=== PATIENT | male | born 1970 | race Caucasian/White ===

== ENCOUNTER 2017-06-14 09:17 | Emergency (ER) | payer OTHER ==
[2017-06-14] MEDS ORDERED: NACL 0.9% 1000 ML 1,000 ML IV ONE (09:27)
[2017-06-14 10:14] LABS: Basophils % (Auto) 0.6 % (0.0-1.8); Eosinophils % (Auto) 1.4 % (0.0-4.3); Hematocrit 44.6 % (35.5-45.6); Hemoglobin 14.8 gm/dl (11.8-15.2); Mean Corpuscular HGB Conc 33 % (32-34); Mean Corpuscular Hemoglobin 29 pg (28-32); Mean Corpuscular Volume 88 fl (84-94); Platelet Count 128 K/mm3 (140-440); Red Blood Count 5.08 M/mm3 (3.65-5.03); White Blood Count 8.9 K/mm3 (4.5-11.0)
[2017-06-14 10:21] LABS: Alanine Aminotransferase 21 units/L (7-56); Albumin 4.4 g/dL (3.9-5); Albumin/Globulin Ratio 1.6 %; Alkaline Phosphatase 94 units/L (35-129); Anion Gap 17 mmol/L; BUN/Creatinine Ratio 23; Blood Urea Nitrogen 18 mg/dL (9-20); Calcium 9.5 mg/dL (8.4-10.2); Carbon Dioxide 28 mmol/L (22-30); Chloride 100.3 mmol/L (98-107); Glucose 101 mg/dL (75-100); Lipase 63 units/L (13-60); Potassium 4.4 mmol/L (3.6-5.0); Sodium 141 mmol/L (137-145); Total Protein 7.2 g/dL (6.3-8.2)
[2017-06-14 10:23] LABS: INR 0.83 (0.87-1.13)
[2017-06-14 10:24] LABS: Partial Thromboplastin Time 31.6 Sec. (24.2-36.6)
--- NOTE | 2017-06-14 19:07 | Emergency Department Report ---
ED GI Bleed HPI - General Chief complaint: GI Bleed Stated complaint: BLOOD IN STOOL Time Seen by Provider: 06/14/17 17:50 Source: patient Mode of arrival: Ambulatory Limitations: No Limitations - History of Present Illness Initial comments: Patient reports once each day his had blood in the toilet. No abdominal pain and no prior history. He does drink minimal water and a lot of caffeine. His urine is usually yellow. No rectal pain either. BMs daily and reports normal. MD complaint: blood on toilet paper -: Sudden Radiation: none Severity scale (0 -10): 0 Quality: painless Consistency: intermittent Improves with: none Worsens with: bowel movement Context: medication/supplement use, other (Recent treatment for hepatitis B by GI.) Associated Symptoms: denies other symptoms - Related Data Home Medications Medication Instructions Recorded Confirmed Last Taken Entecavir [Entecavir] 0.5 mg PO QDAY 06/14/17 06/14/17 Unknown Previous Rx's Medication Instructions Recorded Last Taken Type Hydrocort/Pramoxine [Proctofoam-Hc] 10 gm OH 2XWHS #1 can 06/14/17 Unknown Rx Allergies Allergy/AdvReac Type Severity Reaction Status Date / Time No Known Allergies Allergy Unverified 06/14/17 09:24 ED Review of Systems ROS: Stated complaint: BLOOD IN STOOL Other details as noted in HPI Constitutional: denies: chills, fever Eyes: denies: eye pain, eye discharge, vision change ENT: denies: ear pain, throat pain Respiratory: denies: cough, shortness of breath, wheezing Cardiovascular: denies: chest pain, palpitations Endocrine: no symptoms reported Gastrointestinal: denies: abdominal pain, nausea, diarrhea Genitourinary: denies: urgency, dysuria Musculoskeletal: denies: back pain, joint swelling, arthralgia Skin: denies: rash, lesions Neurological: denies: headache, weakness, paresthesias Psychiatric: denies: anxiety, depression Hematological/Lymphatic: denies: easy bleeding, easy bruising ED Past Medical Hx - Past Medical History Previous Medical History?: No Hx Hypertension: No Hx CVA: No Hx Heart Attack/AMI: No Hx Congestive Heart Failure: No Hx Diabetes: No Hx Deep Vein Thrombosis: No Hx Pulmonary Embolism: No Hx Liver Disease: Yes (Hepatitis B) - Surgical History Past Surgical History?: No - Social History Smoking Status: Current Every Day Smoker Substance Use Type: Alcohol - Medications Home Medications: Home Medications Medication Instructions Recorded Confirmed Last Taken Type Entecavir [Entecavir] 0.5 mg PO QDAY 06/14/17 06/14/17 Unknown History Hydrocort/Pramoxine [Proctofoam-Hc] 10 gm [place] 2XWHS #1 can 06/14/17 Unknown Rx ED Physical Exam - General Limitations: No Limitations General appearance: alert, in no apparent distress - Head Head exam: Present: atraumatic, normocephalic - Eye Eye exam: Present: normal appearance - ENT ENT exam: Present: mucous membranes moist - Neck Neck exam: Present: normal inspection - Respiratory Respiratory exam: Present: normal lung sounds bilaterally. Absent: respiratory distress - Cardiovascular Cardiovascular Exam: Present: regular rate, normal rhythm. Absent: systolic murmur, diastolic murmur, rubs, gallop - GI/Abdominal GI/Abdominal exam: Present: soft, normal bowel sounds - Rectal Rectal exam: Present: normal inspection, normal rectal tone, heme (-) stool, hemorrhoids (Interal left anterior hemorrhoid palpated.), normal prostate - Extremities Exam Extremities exam: Present: normal inspection - Back Exam Back exam: Present: normal inspection - Neurological Exam Neurological exam: Present: alert, oriented X3 - Psychiatric Psychiatric exam: Present: normal affect, normal mood - Skin Skin exam: Present: warm, dry, intact, normal color. Absent: rash ED Course Vital Signs 06/14/17 06/14/17 06/14/17 09:24 16:41 16:42 Temperature 97.7 F Pulse Rate 72 72 Respiratory 18 16 16 Rate Blood Pressure 115/79 Blood Pressure 118/80 [Left] O2 Sat by Pulse 99 99 99 Oximetry ED Medical Decision Making - Lab Data Result diagrams: 06/14/17 09:39 06/14/17 09:39 - EKG Data EKG shows normal: sinus rhythm Rate: normal - EKG Data Interpretation: normal EKG - Medical Decision Making patient with unremarkable labs. Will treat as hemorrhoids. Will need to follow up with GI. Will do proctofoam. Encouraged hydration with water and minimal caffeine. Critical care attestation.: If time is entered above; I have spent that time in minutes in the direct care of this critically ill patient, excluding procedure time. ED Disposition Clinical Impression: Hemorrhoid Qualifiers: Hemorrhoid type: first degree Qualified Code(s): K64.0 - First degree hemorrhoids Disposition: TO HOME OR SELFCARE Is pt being admited?: No Does the pt Need Aspirin: No Condition: Good Instructions: Rectal Bleeding (ED) Prescriptions: Hydrocort/Pramoxine [Proctofoam-Hc] 10 gm [place] 2XWHS #1 can Referrals: PRIMARY CARE,MD [Primary Care Provider] - 7-10 days (Follow up with your new MD at [facility] residency program.) Time of Disposition: 19:10
[2017-06-14 19:43] VITALS: BP 113/69
== END 2017-06-14 19:57 | disposition home or self-care (01) ==
LOC: ED 09:17
DX: K64.0 First degree hemorrhoids (principal); F17.200 Nicotine dependence, unspecified, uncomplicated
CPT/HCPCS: 36415; 80053; 83690; 85025; 85610; 85730; 86850; 86900; 86901; 93005; 93010; 96360; 96361

== ENCOUNTER 2022-03-20 01:23 | Emergency (ER) | payer OTHER ==
--- NOTE | 2022-03-20 02:16 | XRay Report ---
CHEST 2 VIEWS INDICATION / CLINICAL INFORMATION: CHEST PAIN. COMPARISON: None available. FINDINGS: SUPPORT DEVICES: None. HEART / MEDIASTINUM: Heart size and mediastinal contour appear within normal limits. LUNGS / PLEURA: No significant pulmonary or pleural abnormality. No pneumothorax. BONES: No significant osseous abnormality. ADDITIONAL FINDINGS: No significant additional findings. IMPRESSION: 1. No active cardiopulmonary disease. Signer Name: Joe Elkins II, MD Signed: 03/20/2022 2:12 AM Workstation Name: [id number]
[2022-03-20 02:31] LABS: Basophils % (Auto) 0.3 % (0.0-1.8); Eosinophils # (Auto) 0.1 K/mm3 (0.0-0.4); Eosinophils % (Auto) 1.9 % (0.0-4.3); Hematocrit 42.9 % (35.5-45.6); Hemoglobin 14.4 gm/dl (11.8-15.2); Lymphocytes # (Auto) 1.9 K/mm3 (1.2-5.4); Lymphocytes % (Auto) 24.5 % (13.4-35.0); Mean Corpuscular HGB Conc 34 % (32-34); Mean Corpuscular Volume 88 fl (84-94); Monocytes # (Auto) 0.6 K/mm3 (0.0-0.8); Monocytes % (Auto) 8.4 % (0.0-7.3); Platelet Count 127 K/mm3 (140-440); Red Blood Count 4.89 M/mm3 (3.65-5.03); Red Cell Distribution Width 13.4 % (13.2-15.2)
[2022-03-20 03:13] LABS: Alanine Aminotransferase 47 units/L (7-56); Albumin 4.4 g/dL (3.9-5); BUN/Creatinine Ratio 16; Blood Urea Nitrogen 13 mg/dL (9-20); Calcium 9.2 mg/dL (8.4-10.2); Hemolysis Index 9
--- NOTE | 2022-03-20 04:46 | Emergency Department Report ---
ED Chest Pain HPI - General Chief Complaint: Chest Pain Stated Complaint: CHEST PAIN Source: patient Mode of arrival: Ambulatory Limitations: No Limitations - History of Present Illness Initial Comments: Patient is a 51-year-old male with no past medical history who presents to the ED with complaint of acute onset persistent diffuse chest pain that he describes as pressure and tightness for the last 4 days. Patient also complains of nausea, vomiting and diarrhea with numbness and tingling of upper extremities bilaterally. Patient states that the nausea and vomiting have since resolved but the chest pain has continued to be present. Patient denies dizziness, syncope, fever, chills, cough, sore throat, nasal and sinus congestion, traumatic injury, heavy lifting, bilateral upper extremity weakness or abdominal pain. MD Complaint: chest pain, other (nausea, vomiting and diarrhea; diffuse body aches; bilateral arm pain) -: Gradual, days(s) (4) Onset: during rest Pain Location: left chest Pain Radiation: RUE, LUE, abdomen Severity: moderate Severity scale (0 -10): 4 Quality: aching, pressure Consistency: constant Improves With: nothing Worsens With: nothing re: nausea, vomting. denies: diaphoresis, dyspnea, sense of impending doom Other Symptoms: denies: cough, fever, syncope, rash, acid taste in mouth, leg swelling, palpitations, burping Treatments Prior to Arrival: none Aspirin use within the Past 7 Days: (0) No - Related Data On Oral Contraceptives: No Home Medications Medication Instructions Recorded Confirmed Last Taken Entecavir 0.5 mg PO QDAY 06/14/17 06/14/17 Unknown Previous Rx's Medication Instructions Recorded Last Taken Type Hydrocort/Pramoxine [Proctofoam-Hc] 10 gm [place] 2XWHS #1 can 06/14/17 Unknown Rx Naproxen 500 mg PO Q12H PRN #20 tab 03/20/22 Unknown Rx hydrOXYzine PAMOATE [Vistaril] 50 mg PO Q6HR PRN #30 capsule 03/20/22 Unknown Rx Allergies Allergy/AdvReac Type Severity Reaction Status Date / Time No Known Allergies Allergy Unverified 06/14/17 09:24 Heart Score - HEART Score History: Slightly suspicious EKG: Normal Age: 45-65 Risk factors: 1-2 risk factors Troponin: < normal limit HEART Score: 2 - EKG Read Time Time EKG Completed: 01:48 EKG Read Time: 01:53 - Critical Actions Critical Actions: 0-3 pts:0.9-1.7%risk of adverse cardiac event.Candidate for discharge ED Review of Systems ROS: Stated complaint: CHEST PAIN Other details as noted in HPI Constitutional: denies: chills, fever Eyes: denies: eye pain, eye discharge, vision change ENT: denies: ear pain, throat pain Respiratory: denies: cough, shortness of breath, wheezing Cardiovascular: chest pain (left-sided). denies: palpitations, dyspnea on exertion, edema, syncope, paroxysmal nocturnal dyspnea Endocrine: no symptoms reported Gastrointestinal: nausea, vomiting, diarrhea. denies: abdominal pain Genitourinary: denies: urgency, dysuria Musculoskeletal: arthralgia, myalgia. denies: back pain, joint swelling Skin: denies: rash, lesions Neurological: headache. denies: weakness, paresthesias Psychiatric: denies: anxiety, depression Hematological/Lymphatic: denies: easy bleeding, easy bruising ED Past Medical Hx - Past Medical History Hx Hypertension: No Hx CVA: No Hx Heart Attack/AMI: No Hx Congestive Heart Failure: No Hx Diabetes: No Hx Deep Vein Thrombosis: No Hx Pulmonary Embolism: No Hx Liver Disease: Yes (Hepatitis B) - Social History Smoking Status: Current Every Day Smoker Substance Use Type: Alcohol - Medications Home Medications: Home Medications Medication Instructions Recorded Confirmed Last Taken Type Entecavir 0.5 mg PO QDAY 06/14/17 06/14/17 Unknown History Hydrocort/Pramoxine [Proctofoam-Hc] 10 gm NH 2XWHS #1 can 06/14/17 Unknown Rx Naproxen 500 mg PO Q12H PRN #20 tab 03/20/22 Unknown Rx hydrOXYzine PAMOATE [Vistaril] 50 mg PO Q6HR PRN #30 capsule 03/20/22 Unknown Rx ED Physical Exam - General Limitations: No Limitations General appearance: alert, in no apparent distress - Head Head exam: Present: atraumatic, normocephalic, normal inspection - Eye Eye exam: Present: normal appearance, PERRL, EOMI Pupils: Present: normal accommodation - ENT ENT exam: Present: normal exam, normal orophraynx, mucous membranes moist, TM's normal bilaterally, normal external ear exam - Neck Neck exam: Present: normal inspection, full ROM. Absent: tenderness, meningismus, lymphadenopathy, thyromegaly - Respiratory Respiratory exam: Present: normal lung sounds bilaterally, chest wall tenderness (Palpable reproducible left sided chest wall tenderness). Absent: respiratory distress, wheezes, rales, rhonchi, stridor, accessory muscle use, decreased breath sounds, prolonged expiratory, other - Cardiovascular Cardiovascular Exam: Present: regular rate, normal rhythm, normal heart sounds. Absent: systolic murmur, diastolic murmur, rubs, gallop - GI/Abdominal GI/Abdominal exam: Present: soft, normal bowel sounds. Absent: tenderness, guarding, rebound, hyperactive bowel sounds, hypoactive bowel sounds, organ omegaly, mass, bruit - Extremities Exam Extremities exam: Present: normal inspection, full ROM, normal capillary refill. Absent: tenderness - Back Exam Back exam: Present: normal inspection, full ROM. Absent: tenderness, CVA tenderness (R), CVA tenderness (L), muscle spasm, paraspinal tenderness, vertebral tenderness - Neurological Exam Neurological exam: Present: alert, oriented X3, CN II-XII intact, normal gait, reflexes normal - Psychiatric Psychiatric exam: Present: normal affect, normal mood, anxious - Skin Skin exam: Present: warm, dry, intact, normal color. Absent: rash ED Course Vital Signs 03/20/22 01:46 Temperature 98.5 F Pulse Rate 71 Respiratory 20 Rate Blood Pressure 142/88 O2 Sat by Pulse 97 Oximetry KENNEDY score - Kennedy Score Age > 65: (0) No Aspirin use within the Past 7 Days: (0) No 3 or more CAD Risk Factors: (0) No 2 or more Angina events in past 24 hrs: (0) No Known CAD with more than 50% Stenosis: (0) No Elevated Cardiac Markers: (0) No ST Deviation Greater than 0.5mm: (0) No KENNEDY Score: 0 ED Medical Decision Making - Lab Data Result diagrams: 03/20/22 01:52 03/20/22 01:52 - EKG Data EKG shows normal: sinus rhythm Rate: normal - EKG Data Interpretation: normal EKG 03/20/22 04:49 EKG shows normal sinus rhythm with a ventricular rate of [address] or T wave abnormalities - Radiology Data Radiology results: report reviewed, image reviewed [address] [place] [address] XRay Report Signed Patient: SJ HUNTER MR#: [id number] : 1970 Acct:[id number] Age/Sex: 51 / M ADM Date: 03/20/22 Loc: ED Attending Dr: Ordering Physician: CYNDEE BURROUGHS MD Date of Service: 03/20/22 Procedure(s): XR chest routine 2V Accession Number(s): [id number] cc: ED MD MANJEET Fluoro Time In Minutes: CHEST 2 VIEWS INDICATION / CLINICAL INFORMATION: CHEST PAIN. COMPARISON: None available. FINDINGS: SUPPORT DEVICES: None. HEART / MEDIASTINUM: Heart size and mediastinal contour appear within normal limits. LUNGS / PLEURA: No significant pulmonary or pleural abnormality. No pneumothorax. BONES: No significant osseous abnormality. ADDITIONAL FINDINGS: No significant additional findings. IMPRESSION: 1. No active cardiopulmonary disease. Signer Name: Raymon Cornelius II, MD Signed: 03/20/2022 2:12 AM Workstation Name: [id number] Transcribed By: HEMAL Dictated By: RAYMON CORNELIUS II, MD Electronically Authenticated By: RAYMON CORNELIUS II, MD Signed Date/Time: 03/20/22211 DD/ 1 TD/TT: - Medical Decision Making This is a 51-year-old male with no past medical history who presents to the ED with complaint of acute onset persistent diffuse chest pain that he describes as pressure and tightness for the last 4 days. Patient also complains of nausea, vomiting and diarrhea with numbness and tingling of upper extremities bilaterally. Patient states that the nausea and vomiting have since resolved but the chest pain has continued to be present. In the ED, patient is alert and oriented x3 and is not in any distress. Patient is hemodynamically stable. All lab test results were reviewed and are all nonactionable including troponin levels. Chest x-ray showed no acute cardiopulmonary abnormalities or pneumonitis. The EKG shows normal sinus rhythm with a ventricular rate of [address] or T wave abnormalities. Based on the history and physical exam f indings as well as imaging reports, patient symptoms are likely musculoskeletal. Patient's heart score is 2 and patient is PERC negative per Wells criteria. Patient was therefore discharged home and given a referral to the biodiesel division manager Dr. Cintron for further evaluation. Patient was advised to return to the ED immediately if symptoms get worse. - Differential Diagnosis ACS; muscle strain; costochondritis; pneumonia; dissection Critical care attestation.: If time is entered above; I have spent that time in minutes in the direct care of this critically ill patient, excluding procedure time. ED Disposition Clinical Impression: Nonspecific chest pain, Acute costochondritis, Muscle strain of anterior chest wall, Anxiety as acute reaction to exceptional stress Disposition: HOME / SELF CARE / HOMELESS Is pt being admited?: No Does the pt Need Aspirin: No Condition: Stable Instructions: Costochondritis, [id number], Chest Wall Pain, [id number], Muscle Strain, [id number]-[id number], Nonspecific Chest Pain, Adult, [id number], Generalized Anxiety Disorder, Adult Additional Instructions: All lab test results were reviewed and are all nonactionable. Chest x-ray showed no acute cardiopulmonary abnormalities or pneumonitis. The EKG shows normal sinus rhythm with a ventricular rate of 72 bpm. Therefore take medication with food, drink plenty fluids, follow-up with your primary care physician in 5 to 7 days for reevaluation. Consider following up with a biodiesel division manager Dr. Cintron for further evaluation. Return to the ED immediately if your symptoms get worse. Prescriptions: Naproxen 500 mg PO Q12H PRN #20 tab PRN Reason: Pain , Severe (7-10) hydrOXYzine PAMOATE [Vistaril] 50 mg PO Q6HR PRN #30 capsule PRN Reason: Anxiety Referrals: ROSA MARIA VEE MD [Staff Physician] - 3-5 Days SIENNA CINTRON MD [Staff Physician] - 3-5 Days Forms: Work/School Release Form(ED) Time of Disposition: 06:13 Print Language: GREEK
[2022-03-20 06:31] VITALS: BP 136/84
--- NOTE | 2022-03-22 13:50 | Electrocardiograph Report ---
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
== END 2022-03-20 06:43 | disposition home or self-care (01) ==
LOC: ED 01:23
DX: S29.011A Strain of muscle and tendon of front wall of thorax, initial encounter (principal); F41.1 Generalized anxiety disorder; F43.0 Acute stress reaction; M94.0 Chondrocostal junction syndrome [Tietze]; B19.10 Unspecified viral hepatitis B without hepatic coma; F17.200 Nicotine dependence, unspecified, uncomplicated; Z79.899 Other long term (current) drug therapy; X58.XXXA Exposure to other specified factors, initial encounter; Y93.89 Activity, other specified; Y92.89 Other specified places as the place of occurrence of the external cause; Y99.8 Other external cause status
CPT/HCPCS: 36415; 71046; 80053; 84484; 85025; 93005; 99283